=== PATIENT | male | born 1990 | race American Indian/Alaskan Native ===

== ENCOUNTER 2016-10-05 09:07 | Emergency (ER) | payer OTHER ==
[2016-10-05 09:10] VITALS: BMI 25.0
[2016-10-05] MEDS ORDERED: Fluorescein 1 mg Ophthalmic Strip OD ONE (09:26)
[2016-10-05] MEDS ORDERED: Tetracaine 0.5% Ophth (OR ONLY) OD ONE (09:26)
[2016-10-05 09:37] VITALS: BP 127/75; PULSE 88; RESP 18; TEMP 97.6; O2SAT 96
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
[2016-10-05] MEDS ORDERED: Amoxicillin-Clav 875-125 mg Tab PO STA (11:22)
[2016-10-05] MEDS ORDERED: Amoxicillin-Clav 875-125 mg Tab PO ONE (11:47)
[2016-10-05] MEDS ORDERED: Hydrocodone/Acetaminophen 5 mg /300 mg Tab PO STA (11:51)
== END 2016-10-05 11:57 | disposition home or self-care (01) ==
LOC: C.ER 09:07
DX: S02.81XA Fracture of other specified skull and facial bones, right side, initial encounter for closed fracture (principal); S05.11XA Contusion of eyeball and orbital tissues, right eye, initial encounter; W22.8XXA Striking against or struck by other objects, initial encounter